=== PATIENT | male | born 1960 | race Caucasian/White ===

== ENCOUNTER 2018-08-06 09:32 | Day surgery (SDC) | payer OTHER ==
[~2018-08-06 09:32] MED LIST: Buffered Lidocaine 0.9% SYRIN* 5 ML/SYR SYRINGE INTRADERM ONE
[2018-08-06] MEDS ORDERED: Clindamycin 900 MG/D5W BAG(*) 0 MG/0 ML BAG IVPB ONE (09:52)
[2018-08-06] MEDS ORDERED: Morphine VIAL* 10 MG/ML 1 ML VIAL ONE (09:52)
[2018-08-06] MEDS ORDERED: Propofol* 10 MG/ML 20 ML BTL ONE (09:54)
[2018-08-06] MEDS ORDERED: Lidocaine 2% PF * 5 ML VIAL ONE (09:54)
[2018-08-06] MEDS ORDERED: fentaNYL* 50 MCG/ML 2 ML VIAL (100 MCG VIAL) ONE (09:55)
[2018-08-06] MEDS ORDERED: Rocuronium* 10 MG/ML VIAL ONE (09:55)
[2018-08-06] MEDS ORDERED: Midazolam* 1 MG/ML 2 ML VIAL (2 MG) ONE (09:55)
[2018-08-06] MEDS ORDERED: Ketorolac INJ* 30 MG/ML 1 ML VIAL ONE (10:00)
[2018-08-06] MEDS ORDERED: Ondansetron INJ* 2 MG/ML VIAL ONE (10:00)
[2018-08-06] MEDS ORDERED: Metoclopramide IV* 5 MG/ML 2 ML VIAL ONE (10:00)
[2018-08-06] MEDS ORDERED: ROPIVACAINE 5 MG/ML 30 ML BTL (0.5%) ONE (10:39)
[2018-08-06] MEDS ORDERED: EPINEPHRINE 1 MG/ML 1 ML VIAL ONE ×2 (10:40→13:09)
[2018-08-06] MEDS ORDERED: Clindamycin 900 MG/D5W BAG(*) 900 MG/50 ML BAG IVPB ONE (11:32)
[2018-08-06] MEDS ORDERED: Acetaminophen IV 1GM/100ML * 100 ML ONE (14:06)
[2018-08-06] MEDS ORDERED: Sugammadex * 500 MG/5 ML VIAL IV PUSH ONE (15:14)
[2018-08-06] MEDS ORDERED: fentaNYL* 50 MCG/ML 2 ML VIAL (100 MCG VIAL) IV PRN (15:25)
[2018-08-06] MEDS ORDERED: Naloxone* 0.4 MG/ML 1 ML VIAL IV PRN (15:25)
[2018-08-06] MEDS ORDERED: DiMENhydriNATE IV* 50 MG/ML VIAL IV PUSH PRN (15:25)
[2018-08-06 17:10] VITALS: BP 141/80
--- NOTE | 2018-08-09 08:41 | OP ---
OPERATIVE REPORT: DATE OF OPERATION: 08/06/18 DATE OF : 56 SURGEON: Justice Huerta MD TEST TECHNICIAN: JOSE Fuentes A physician marketing administrative assistant was required for the length of the procedure for assistance with manipulation, patient positioning, instrumentation and closure. ANESTHESIOLOGIST: Dr. Sandy Segundo. ANESTHESIA: General anesthesia, regional interscalene block anesthesia as well as pectoral nerve block anesthesia. PREOPERATIVE DIAGNOSES: 1. Left shoulder rotator cuff tendinitis, severe. 2. Left shoulder acromioclavicular joint osteoarthritis, subacromial impingement and bursitis. 3. Left shoulder proximal biceps tendinosis. 4. Left shoulder stiffness and capsulitis. POSTOPERATIVE DIAGNOSES: 1. Left shoulder low-grade partial-thickness undersurface tear, supraspinatus and infraspinatus. 2. Left shoulder subacromial impingement and bursitis. 3. Left shoulder acromioclavicular joint osteoarthritis. 4. Left shoulder biceps tendinosis. 5. Left shoulder stiffness and capsulitis. OPERATIVE PROCEDURE: 1. Left shoulder arthroscopic lysis of adhesions and capsulotomy and manipulation under anesthesia. 2. Left shoulder arthroscopic debridement undersurface supraspinatus rotator cuff tendon and infraspinatus rotator cuff tendon. 3. Left shoulder arthroscopic subacromial decompression. 4. Left shoulder arthroscopic distal clavicle resection. 5. Left shoulder open proximal biceps tenodesis, subpectoral. IV FLUIDS: 900 cc crystalloid. [id number] TIME: 87 minutes. ANTIBIOTICS: Clindamycin 900 mg IV. ARTHROSCOPIC FLUID UTILIZED: Six bags each with 3 L of fluid for a total of 18 L. SPECIMEN: None. IMPLANTS: Arthrex proximal biceps tendon button x1. COMPLICATIONS: None. ESTIMATED BLOOD LOSS: Minimal. 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 The patient saw Dr. Stern and then myself. He had hyperabduction to the left shoulder with each fall. The patient responded insufficiently to the full spectrum of treatment of nonoperative management and opted for surgery. MRI preoperatively showed AC joint osteoarthritis, osteophytes about the AC joint and acromion undersurface, and severe rotator cuff tendinopathy. A biceps tendinosis intra- articular. The patient had stiffness preoperatively on exam. The patient was signed up for surgery. I discussed risks and potential complications. The patient preferred biceps tenodesis to tenotomy if the biceps would need to be treated. DESCRIPTION OF PROCEDURE: The patient signed a written consent in preoperative holding. Operative extremity was marked in preoperative holding. Sandy Carvalho performed the regional nerve blocks. The patient was taken back to the operating room and placed supine on the operating room table. Sedated and intubated. Placed in a lateral decubitus position with the left shoulder up. Axillary roll placed. Deleon bag was hardened. All bony prominences were padded. Longitudinal traction with the appropriate amount of forward flexion and abduction. The left shoulder was prepped and draped. Surgical time-out was performed. I first performed an examination under anesthesia. I normally prefer this before the draping but I performed it in this case after the draping. I did so sterilely. The patient had significant stiffness. I therefore performed a manipulation under anesthesia. There was some popping appreciated about the shoulder, capsular tearing. I was able to manipulate the patient to 180 degrees of forward flexion, 90 degrees of external and 70 degrees of internal rotation. The patient's arm was then placed back into longitudinal traction. I infused 30 cc of normal saline into the glenohumeral joint from posterior. I then established a posterior portal using standard technique. I noted some fraying in the rotator cuff crescent. I established an anterior glenohumeral joint portal under direct visualization. The patient had much tendinosis of the biceps tendon as well. No subscapularis tear. No loose body. No significant articular cartilage lesions. Given the tendinosis of the biceps tendon, I decided to release it. I did so with arthroscopic scissors brought in from anterior. I next debrided some of the frayed tissues on the undersurface of the supraspinatus with an arthroscopic shaver. I evaluated closely the undersurface of the supraspinatus and infraspinatus. The patient had only several millimeters, less than 5 certainly, of exposed footprint at some of the superior infraspinatus and posterior supraspinatus fibers. There was no clear retracted tear visible. I smoothed out some of this frayed tissue. I marked this area with a spinal needle from outside the shoulder. Hook cautery was not yet available, so I did not use it at this point in the case. I next proceeded to the subacromial space from anterior and posterior. I established the lateral subacromial portal under direct visualization followed by posterolateral portal. The patient had bursitis. I cleared this out with the arthroscopic shaver. I visualized the placement of the spinal needle. I removed it. The patient had no bursal-sided tearing of the rotator cuff. I probed the tendon aggressively with arthroscopic probe and with a switching stick and there was no significant defect noted. The tendon appeared christian and not thin. Hook-tip cautery device became available. I returned to the glenohumeral joint. I evaluated the undersurface of the rotator cuff again and then decided that there was only 1 to 2 to 3 mm of uncovered rotator cuff footprint, no clear tear. No repair needed. I also took the hook-tip cautery from the posterior portal and released the posterior capsule. I then followed that with an arthroscopic shaver to release this capsule. I returned to the subacromial space. I next performed a subacromial decompression using an arthroscopic conrad. I next moved to the AC joint. I debrided bursitic tissue with a VAPR and then removed at least 8 mm of distal end of the clavicle with an arthroscopic conrad. I removed instruments and fluid from the subacromial space. I closed the skin incisions with [id number] and 12 stitches using nylon 3- 0 suture. We deflated the deleon bag and converted the patient to a supine position. I made a 4-cm longitudinal incision over the anteromedial aspect of the proximal upper arm. Dissected down the bicipital groove. Pulled long head of biceps tendon from incision. Retractors had been placed. Placed 4 stitches with FiberLoop suture. Loaded button. I had placed a pin through the anterior cortex of the proximal humerus. I placed the button and flipped it and tied a knot. I next placed one additional stitch and tied a knot. Removed excess suture and biceps tendon. Irrigation. Closure with buried simple stitches using Vicryl 3-0 suture in the subcutaneous and a running subcuticular stitch with Monocryl 4-0 suture. Mastisol, Steri-Strips, 4x4's, and Tegaderm. The arthroscopic incisions were closed with Xeroform, 4x4's, ABDs, foam tape. The patient was placed in a sling with a cooling unit. The patient was awakened and brought to the PACU. DISPOSITION: The patient will follow up with me 10 to 14 days postoperatively. Wound care instructions provided. The patient will start physical therapy immediately. The patient will receive Percocet for pain control and clindamycin for 5 days for infection prophylaxis. The patient will start physical therapy immediately. [id number] #: [id number] MTDD
== END 2018-08-06 18:08 | disposition home or self-care (01) ==
LOC: OR 09:32
PROVIDERS: ATTEND Orthopaedic Surgery
DX: S46.012A Strain of muscle(s) and tendon(s) of the rotator cuff of left shoulder, initial encounter (principal); M75.42 Impingement syndrome of left shoulder; M75.02 Adhesive capsulitis of left shoulder; M75.22 Bicipital tendinitis, left shoulder; M19.012 Primary osteoarthritis, left shoulder; G89.18 Other acute postprocedural pain; W19.XXXA Unspecified fall, initial encounter; Y92.9 Unspecified place or not applicable; Z87.891 Personal history of nicotine dependence; E78.5 Hyperlipidemia, unspecified
CPT/HCPCS: C1776; J1885; J2250; J2270; J2405; J2704; J2765; J2795; J3010